=== PATIENT | male | born 1945 | race Caucasian/White ===

== ENCOUNTER 2016-11-29 07:42 | Day surgery (SDC) | payer MEDICARE, OTHER ==
[2016-11-29] MEDS ORDERED: CYCLOPENTOLATE 1% OPHTH DROPS 2 ML OPTH ONE (08:05)
[2016-11-29] MEDS ORDERED: TROPICAMIDE 1% OPHTH 2 ML DROPS OPTH ONE (08:05)
[2016-11-29] MEDS ORDERED: KETOROLAC 0.45% OPHTH DROPS OPTH ONE (08:05)
[2016-11-29] MEDS ORDERED: LACTATED RINGERS 1,000 ML IV ONE (09:08)
[2016-11-29] MEDS ORDERED: levoFLOXacin 0.5% OPHTH DROPS 5 ML OPTH ONE (09:17)
[2016-11-29] MEDS ORDERED: EPINEPHrine 1 MG/ML AMP IO ONE (09:17)
[2016-11-29] MEDS ORDERED: CHONDR SULF/HYALURONATE SYRINGE IO ONE (09:17)
[2016-11-29] MEDS ORDERED: MIDAZOLAM 2 MG/2 ML VIAL IVP ONE (09:17)
[2016-11-29] MEDS ORDERED: BSS/LIDOCAINE/EPINEPHRINE 1 ML SYRINGE IO ONE (09:17)
[2016-11-29] MEDS ORDERED: PROPARACAINE 0.5% OPHTH DROPS 15 ML OPTH ONE (09:17)
[2016-11-29] MEDS ORDERED: TETRACAINE 0.5% OPHTH DROPS 4 ML OPTH ONE (09:17)
== END 2016-11-29 07:43 | disposition home or self-care (01) ==
PROC: 08RK3JZ Replacement of Left Lens with Synthetic Substitute, Percutaneous Approach (ICD-10-PCS; principal; 2016-11-29 08:45)
DX: H26.9 Unspecified cataract (principal); G20 Parkinson's disease; Z86.73 Personal history of transient ischemic attack (TIA), and cerebral infarction without residual deficits
CPT/HCPCS: 66984; J7120; V2632

== ENCOUNTER 2016-12-13 07:05 | Day surgery (SDC) | payer MEDICARE, OTHER ==
[2016-12-13] MEDS ORDERED: CYCLOPENTOLATE 1% OPHTH DROPS 2 ML OPTH ONE (07:20)
[2016-12-13] MEDS ORDERED: TROPICAMIDE 1% OPHTH 2 ML DROPS OPTH ONE (07:20)
[2016-12-13] MEDS ORDERED: KETOROLAC 0.45% OPHTH DROPS OPTH ONE (07:20)
[2016-12-13] MEDS ORDERED: LACTATED RINGERS 500 ML IV ONE (07:23)
[2016-12-13] MEDS ORDERED: BRIMONIDINE 0.2% OPHTH DROPS 5 ML OPTH ONE (08:26)
[2016-12-13] MEDS ORDERED: CHONDR SULF/HYALURONATE SYRINGE IO ONE (08:26)
[2016-12-13] MEDS ORDERED: TETRACAINE 0.5% OPHTH DROPS 4 ML OPTH ONE (08:26)
[2016-12-13] MEDS ORDERED: EPINEPHrine 1 MG/ML AMP IO ONE (08:26)
[2016-12-13] MEDS ORDERED: levoFLOXacin 0.5% OPHTH DROPS 5 ML OPTH ONE (08:26)
[2016-12-13] MEDS ORDERED: PROPARACAINE 0.5% OPHTH DROPS 15 ML OPTH ONE (08:26)
[2016-12-13] MEDS ORDERED: BSS/LIDOCAINE/EPINEPHRINE 1 ML SYRINGE IO ONE (08:27)
== END 2016-12-13 07:06 | disposition home or self-care (01) ==
PROC: 08RJ3JZ Replacement of Right Lens with Synthetic Substitute, Percutaneous Approach (ICD-10-PCS; principal; 2016-12-13 08:00)
DX: H25.11 Age-related nuclear cataract, right eye (principal); Z86.73 Personal history of transient ischemic attack (TIA), and cerebral infarction without residual deficits; G20 Parkinson's disease
CPT/HCPCS: 66984; V2632

== ENCOUNTER 2017-05-22 10:00 | Outpatient (CLI) | payer MEDICARE, OTHER | END 2017-05-22 10:01 | disposition EMS.NT | LOC: EMS 10:00 | PROVIDERS: ATTEND Surgery | DX: M54.9 Dorsalgia, unspecified (principal) ==

== ENCOUNTER 2019-01-28 11:15 | Outpatient (CLI) | payer MEDICARE, OTHER ==
--- NOTE | 2019-01-29 08:35 | Ultrasound Report ---
Reason: KNEE PAIN, RIGHT Procedure Date: 01/28/2019 Accession Number: [id number] / [id number] Procedure: US - Ext Limited Non Vascular CPT Code: FULL RESULT: EXAM: RIGHT LOWER EXTREMITY ULTRASOUND - LIMITED EXAM DATE: 01/28/2019 11:21 AM. CLINICAL HISTORY: Right knee pain. Right knee popliteal mass. COMPARISON: None. TECHNIQUE: Real-time scanning was performed with static images obtained. FINDINGS: Sonographic assessment of the area of concern along the posterior aspect of the medial right knee demonstrates a lobular dumbbell-shaped cystic structure measuring 5.3 x 0.8 x 2 cm which runs deep to the margins of adjacent musculature and is filled with fluid. No increased vascularity noted. IMPRESSION: 1. Right popliteal 5.3 x 0.8 x 2 cm cystic fluid-filled dumbbell-shaped structure which most likely represents a popliteal cyst. RADIA
== END 2019-01-28 11:16 | disposition home or self-care (01) ==
LOC: DI 11:15
PROVIDERS: ATTEND Orthopaedic Surgery Sports Medicine
DX: M25.861 Other specified joint disorders, right knee (principal)
CPT/HCPCS: 76882

== ENCOUNTER 2019-05-26 13:44 | Outpatient (CLI) | payer MEDICARE, OTHER ==
[~2019-05-26 13:44] MED LIST: BUFFERED LIDOCAINE 10 ML SYRINGE ONE
[2019-05-26] MEDS ORDERED: TRIAMCINOLONE 40 MG/ML VIAL IM ONE (15:20)
[2019-05-26] MEDS ORDERED: BUFFERED LIDOCAINE 10 ML SYRINGE IU ONE (15:20)
--- NOTE | 2019-05-26 15:54 | Ultrasound Report ---
Reason: KNEE PAIN, RIGHT Procedure Date: 05/26/2019 Accession Number: [id number] / [id number] Procedure: US - US Drain/Inj Joint/Bursa W US CPT Code: 96281 FULL RESULT: EXAM: ULTRASOUND-GUIDED POPLITEAL FOSSA CYST ASPIRATION AND ULTRASOUND-GUIDED JOINT STEROID INJECTION. EXAM DATE: 05/26/2019 03:00 PM. CLINICAL HISTORY: Knee pain, right. COMPARISON: None. FINDINGS AND TECHNIQUE: Risks, benefits, and alternatives to the procedure were discussed with the patient. All questions answered. Written and verbal consent obtained. Patient was placed in the prone position and the skin overlying the right popliteal fossa was marked with sonographic guidance. The skin was sterilely prepped and draped, and 1% buffered lidocaine was used for local anesthesia. An 18-gauge needle was advanced into the popliteal fossa cyst and fluid aspirated. The fluid was clear and straw-colored. Given synovial prominence and patient's symptoms, the knee joint with persistent effusion was then injected with 40 mg of triamcinolone steroid. Patient tolerated procedure well. IMPRESSION: Ultrasound-guided popliteal fossa cyst aspiration. Ultrasound-guided right knee joint steroid injection. RAD[facility]
== END 2019-05-26 13:45 | disposition home or self-care (01) ==
LOC: DI 13:44
PROVIDERS: ATTEND Orthopaedic Surgery Sports Medicine
DX: M25.561 Pain in right knee (principal); M71.21 Synovial cyst of popliteal space [Baker], right knee
CPT/HCPCS: 20611

== ENCOUNTER 2021-04-26 09:16 | Outpatient (CLI) | payer MEDICARE, OTHER ==
[2021-04-26 14:53] LABS: BASOPHILS % (AUTO) 0.4 %; EOSINOPHILS # (AUTO) 0.2 10^3/uL (0.0-0.7); EOSINOPHILS % (AUTO) 2.1 %; HCT - HEMATOCRIT 44.7 % (42.0-52.0); HGB - HEMOGLOBIN 14.7 g/dL (14.0-18.0); LYMPHOCYTES # (AUTO) 1.4 10^3/uL (1.5-3.5); LYMPHOCYTES % (AUTO) 15.9 %; MEAN CORPUSCULAR HGB CONC 32.9 g/dL (32.0-36.0); MEAN CORPUSCULAR VOLUME 94.3 fL (80.0-94.0); MEAN PLATELET VOLUME 12.4 fL (7.4-11.4); MONOCYTES # (AUTO) 0.8 10^3/uL (0.0-1.0); MONOCYTES % (AUTO) 8.8 %; NEUTROPHILS # (AUTO) 6.5 10^3/uL (1.5-6.6); NEUTROPHILS % (AUTO) 72.6 %; PLT - PLATELET COUNT 190 10^3/uL (130-450); RED BLOOD COUNT 4.74 10^6/uL (4.70-6.10); WHITE BLOOD COUNT 8.9 x10^3/uL (4.8-10.8)
[2021-04-26 15:07] LABS: THYROID STIMULATING HORMONE 1.59 uIU/mL (0.34-5.60)
[2021-04-26 15:13] LABS: FERRITIN 140.3 ng/mL (23.9-336.2)
[2021-04-26 15:15] LABS: % IRON SATURATION 21 % (20-50); ALBUMIN 3.7 g/dL (3.2-5.5); ALBUMIN/GLOBULIN RATIO 1.1 (1.0-2.2); ALKALINE PHOSPHATASE 63 IU/L (42-121); ALT ALANINE AMINOTRANSFERASE < 10 IU/L (10-60); AST ASPARTATE AMINOTRANSFERASE 16 IU/L (10-42); BILIRUBIN,TOTAL 0.6 mg/dL (0.2-1.0); BUN - BLOOD UREA NITROGEN 18 mg/dL (6-20); CALCIUM 9.3 mg/dL (8.5-10.3); CARBON DIOXIDE - CO2 30 mmol/L (21-32); CHLORIDE 104 mmol/L (101-111); CHOL/HDL RATIO 3.5 (<5.0); CHOLESTEROL 182 mg/dL; GFR - MDRD 72 (>89); GLUCOSE 75 mg/dL (70-100); HDL CHOLESTEROL 52 mg/dL; IRON 68 ug/dL (45-182); LDL CHOLESTEROL,CALCULATED 110 mg/dL; LDL/HDL RATIO 2.1 (<3.6); POTASSIUM 4.1 mmol/L (3.5-5.0); SODIUM 143 mmol/L (135-145); TOTAL IRON BINDING CAPACITY 325 ug/dL (250-450); TRANSFERRIN 232 mg/dL (180-329); TRIGLYCERIDES 101 mg/dL; URIC ACID 5.5 mg/dL (2.6-7.2); VLDL CHOLESTEROL 20 mg/dL
[2021-04-26 20:42] LABS: ESTIMATED AVERAGE GLUCOSE 117 mg/dL (70-100); HEMOGLOBIN A1c% 5.7 % (4.27-6.07)
== END 2021-04-26 09:17 | disposition home or self-care (01) ==
LOC: LAB.S 09:16
PROVIDERS: ATTEND Naturopath
DX: G20 Parkinson's disease (principal); E63.9 Nutritional deficiency, unspecified; R63.8 Other symptoms and signs concerning food and fluid intake; Z71.3 Dietary counseling and surveillance
CPT/HCPCS: 36415; 80053; 80061; 81599; 82306; 82542; 82570; 82607; 82627; 82728; 83036; 83540; 83721; 84443; 84466; 84550; 85025; 86141

== ENCOUNTER 2021-06-27 11:30 | Outpatient (CLI) | payer MEDICARE, OTHER ==
[2021-06-27 15:15] LABS: BASOPHILS # (AUTO) 0.1 10^3/uL (0.0-0.1); BASOPHILS % (AUTO) 0.8 %; EOSINOPHILS # (AUTO) 0.1 10^3/uL (0.0-0.7); EOSINOPHILS % (AUTO) 1.7 %; HCT - HEMATOCRIT 43.6 % (42.0-52.0); LYMPHOCYTES # (AUTO) 1.2 10^3/uL (1.5-3.5); LYMPHOCYTES % (AUTO) 16.1 %; MEAN CORPUSCULAR HGB CONC 32.1 g/dL (32.0-36.0); MEAN CORPUSCULAR VOLUME 96.5 fL (80.0-94.0); MEAN PLATELET VOLUME 12.1 fL (7.4-11.4); MONOCYTES # (AUTO) 0.6 10^3/uL (0.0-1.0); MONOCYTES % (AUTO) 8.3 %; NEUTROPHILS # (AUTO) 5.2 10^3/uL (1.5-6.6); NEUTROPHILS % (AUTO) 72.8 %; PLT - PLATELET COUNT 193 10^3/uL (130-450); RED BLOOD COUNT 4.52 10^6/uL (4.70-6.10); RED CELL DISTRIBUTION WIDTH 13.2 % (12.0-15.0); WHITE BLOOD COUNT 7.1 x10^3/uL (4.8-10.8)
[2021-06-27 15:44] LABS: % IRON SATURATION 43 % (20-50); ALBUMIN 3.6 g/dL (3.2-5.5); ALBUMIN/GLOBULIN RATIO 1.1 (1.0-2.2); ALKALINE PHOSPHATASE 59 IU/L (42-121); ALT ALANINE AMINOTRANSFERASE < 10 IU/L (10-60); AST ASPARTATE AMINOTRANSFERASE 16 IU/L (10-42); BUN - BLOOD UREA NITROGEN 20 mg/dL (6-20); CALCIUM 8.8 mg/dL (8.5-10.3); CARBON DIOXIDE - CO2 30 mmol/L (21-32); CHLORIDE 100 mmol/L (101-111); CHOL/HDL RATIO 3.4 (<5.0); CHOLESTEROL 168 mg/dL; CRP HIGH SENSITIVITY 3.8 mg/L; GFR - MDRD 72 (>89); GLUCOSE 85 mg/dL (70-100); HDL CHOLESTEROL 50 mg/dL; IRON 132 ug/dL (45-182); LDL CHOLESTEROL,CALCULATED 105 mg/dL; LDL/HDL RATIO 2.1 (<3.6); POTASSIUM 4.6 mmol/L (3.5-5.0); SODIUM 139 mmol/L (135-145); THYROID STIMULATING HORMONE 1.58 uIU/mL (0.34-5.60); TOTAL IRON BINDING CAPACITY 309 ug/dL (250-450); TOTAL PROTEIN 6.8 g/dL (6.7-8.2); TRANSFERRIN 221 mg/dL (180-329); TRIGLYCERIDES 67 mg/dL; URIC ACID 5.1 mg/dL (2.6-7.2); VLDL CHOLESTEROL 13 mg/dL
[2021-06-27 15:51] LABS: FERRITIN 148.8 ng/mL (23.9-336.2)
[2021-06-27 20:15] LABS: ESTIMATED AVERAGE GLUCOSE 105 mg/dL (70-100); HEMOGLOBIN A1c% 5.3 % (4.27-6.07)
[2021-06-28 12:07] LABS: HOMOCYSTEINE 11.4 umol/L (<11.4)
== END 2021-06-27 11:31 | disposition home or self-care (01) ==
LOC: LAB.S 11:30
PROVIDERS: ATTEND Naturopath
DX: G20 Parkinson's disease (principal); R63.8 Other symptoms and signs concerning food and fluid intake; Z71.3 Dietary counseling and surveillance; E63.9 Nutritional deficiency, unspecified
CPT/HCPCS: 36415; 80053; 80061; 81599; 82306; 82542; 82570; 82607; 82627; 82728; 83036; 83090; 83540; 83721; 83921; 84443; 84466; 84550; 85025; 86141

== ENCOUNTER 2021-10-06 10:11 | Outpatient (CLI) | payer MEDICARE, OTHER ==
[2021-10-06 15:27] LABS: BASOPHILS # (AUTO) 0.1 10^3/uL (0.0-0.1); BASOPHILS % (AUTO) 0.6 %; EOSINOPHILS # (AUTO) 0.1 10^3/uL (0.0-0.7); EOSINOPHILS % (AUTO) 1.2 %; HCT - HEMATOCRIT 45.8 % (42.0-52.0); HGB - HEMOGLOBIN 15.4 g/dL (14.0-18.0); LYMPHOCYTES # (AUTO) 1.3 10^3/uL (1.5-3.5); LYMPHOCYTES % (AUTO) 15.3 %; MEAN CORPUSCULAR HEMOGLOBIN 31.6 pg (27.0-31.0); MEAN CORPUSCULAR HGB CONC 33.6 g/dL (32.0-36.0); MEAN CORPUSCULAR VOLUME 93.9 fL (80.0-94.0); MEAN PLATELET VOLUME 11.9 fL (7.4-11.4); MONOCYTES # (AUTO) 0.7 10^3/uL (0.0-1.0); MONOCYTES % (AUTO) 8.8 %; NEUTROPHILS # (AUTO) 6.1 10^3/uL (1.5-6.6); NEUTROPHILS % (AUTO) 73.7 %; PLT - PLATELET COUNT 195 10^3/uL (130-450); RED BLOOD COUNT 4.88 10^6/uL (4.70-6.10); RED CELL DISTRIBUTION WIDTH 12.5 % (12.0-15.0); WHITE BLOOD COUNT 8.2 x10^3/uL (4.8-10.8)
== END 2021-10-06 10:12 | disposition home or self-care (01) ==
LOC: LAB.S 10:11
PROVIDERS: ATTEND Naturopath
DX: G20 Parkinson's disease (principal); R79.89 Other specified abnormal findings of blood chemistry
CPT/HCPCS: 36415; 83090; 85025

== ENCOUNTER 2022-07-05 10:28 | Outpatient (CLI) | payer SELFPAY | END 2022-07-05 10:29 | disposition home or self-care (01) | LOC: LAB.S 10:28 | PROVIDERS: ATTEND Orthopaedic Surgery | DX: M25.561 Pain in right knee (principal); Z96.651 Presence of right artificial knee joint | CPT/HCPCS: 36415; 85651; 86140 ==

== ENCOUNTER 2023-01-02 08:58 | Outpatient (CLI) | payer MEDICARE, OTHER ==
[2023-01-02 14:24] LABS: BASOPHILS # (AUTO) 0.1 10^3/uL (0.0-0.1); BASOPHILS % (AUTO) 0.8 %; EOSINOPHILS # (AUTO) 0.2 10^3/uL (0.0-0.7); EOSINOPHILS % (AUTO) 2.9 %; HCT - HEMATOCRIT 46.2 % (42.0-52.0); HGB - HEMOGLOBIN 14.7 g/dL (14.0-18.0); LYMPHOCYTES # (AUTO) 1.7 10^3/uL (1.5-3.5); LYMPHOCYTES % (AUTO) 20.3 %; MEAN CORPUSCULAR HEMOGLOBIN 30.7 pg (27.0-31.0); MEAN CORPUSCULAR HGB CONC 31.8 g/dL (32.0-36.0); MEAN CORPUSCULAR VOLUME 96.5 fL (80.0-94.0); MEAN PLATELET VOLUME 11.9 fL (7.4-11.4); MONOCYTES # (AUTO) 0.7 10^3/uL (0.0-1.0); MONOCYTES % (AUTO) 8.5 %; NEUTROPHILS # (AUTO) 5.6 10^3/uL (1.5-6.6); NEUTROPHILS % (AUTO) 67.1 %; PLT - PLATELET COUNT 183 10^3/uL (130-450); RED BLOOD COUNT 4.79 10^6/uL (4.70-6.10); RED CELL DISTRIBUTION WIDTH 12.6 % (12.0-15.0); WHITE BLOOD COUNT 8.3 x10^3/uL (4.8-10.8)
[2023-01-02 15:26] LABS: THYROID STIMULATING HORMONE 2.13 uIU/mL (0.34-5.60)
[2023-01-02 15:30] LABS: % IRON SATURATION 34 % (20-50); ALBUMIN 3.6 g/dL (3.2-5.5); ALBUMIN/GLOBULIN RATIO 1.2 (1.0-2.2); ALKALINE PHOSPHATASE 64 IU/L (42-121); ALT ALANINE AMINOTRANSFERASE < 10 IU/L (10-60); AST ASPARTATE AMINOTRANSFERASE 14 IU/L (10-42); BILIRUBIN,TOTAL 0.7 mg/dL (0.2-1.0); BUN - BLOOD UREA NITROGEN 17 mg/dL (6-20); CARBON DIOXIDE - CO2 30 mmol/L (21-32); CHLORIDE 108 mmol/L (101-111); CHOL/HDL RATIO 3.7 (<5.0); CHOLESTEROL 201 mg/dL; CREATININE 0.9 mg/dL (0.6-1.2); CRP HIGH SENSITIVITY 2.4 mg/L; GFR - MDRD 81 (>89); GLUCOSE 94 mg/dL (70-100); HDL CHOLESTEROL 55 mg/dL; IRON 116 ug/dL (45-182); LDL CHOLESTEROL,CALCULATED 135 mg/dL; LDL/HDL RATIO 2.5 (<3.6); POTASSIUM 4.4 mmol/L (3.5-5.0); SODIUM 143 mmol/L (135-145); TOTAL IRON BINDING CAPACITY 344 ug/dL (250-450); TOTAL PROTEIN 6.7 g/dL (6.7-8.2); TRANSFERRIN 246 mg/dL (180-329); TRIGLYCERIDES 54 mg/dL; URIC ACID 4.6 mg/dL (2.6-7.2); VLDL CHOLESTEROL 11 mg/dL
[2023-01-02 15:33] LABS: FERRITIN 105.6 ng/mL (23.9-336.2)
[2023-01-02 21:04] LABS: ESTIMATED AVERAGE GLUCOSE 108 mg/dL (70-100); HEMOGLOBIN A1c% 5.4 % (4.27-6.07)
[2023-01-03 06:10] LABS: VITAMIN D 25-HYDROXY 39.8 ng/mL (30.0-100.0)
== END 2023-01-02 08:59 | disposition home or self-care (01) ==
LOC: LAB.S 08:58
PROVIDERS: ATTEND Naturopath
DX: G20 Parkinson's disease (principal); E63.9 Nutritional deficiency, unspecified; Z71.3 Dietary counseling and surveillance; R63.8 Other symptoms and signs concerning food and fluid intake; E78.5 Hyperlipidemia, unspecified
CPT/HCPCS: 36415; 80053; 80061; 81599; 82306; 82542; 82570; 82607; 82627; 82728; 83036; 83090; 83540; 83721; 83921; 84443; 84466; 84550; 85025; 86141

== ENCOUNTER 2023-02-16 07:00 | Outpatient (CLI) | payer MEDICARE, OTHER ==
--- NOTE | 2023-02-16 09:59 | XRAY Report ---
PROCEDURE: Ribs w/PA Chest RT INDICATIONS: CONTUSION OF RIGHT BACK WALL OF THORAX TECHNIQUE: 2 views of the right ribs were acquired, along with a single view chest. COMPARISON: None. FINDINGS: Surgical changes and devices: None. Bones and chest wall: Mildly displaced fractures of the posterior lateral 9-11th ribs. Lungs and pleura: No pleural effusions or pneumothorax. Lungs appear clear. Calcified granuloma i n the right upper lung zone. Mediastinum: Mediastinal contours appear normal. Heart size is normal. IMPRESSION: Mildly displaced fractures of the posterior/lateral 9-11th ribs. No pneumothorax. Reviewed by: German Hernández on 02/16/2023 9:57 AM PDT Approved by: German Hernández on 02/16/2023 9:57 AM PDT Station ID: [id number]
== END 2023-02-16 23:59 | disposition home or self-care (01) ==
LOC: DI.S 07:00
PROVIDERS: ATTEND Registered Nurse
DX: S22.49XA Multiple fractures of ribs, unspecified side, initial encounter for closed fracture (principal)

== ENCOUNTER 2023-02-28 10:25 | Outpatient (CLI) | payer MEDICARE, OTHER ==
--- NOTE | 2023-03-01 10:43 | XRAY Report ---
PROCEDURE: Knee 3 View RT INDICATIONS: OTHER INTERNAL DERANGEMENTS OF RIGHT KNEE TECHNIQUE: 3 views of the right knee(s) were acquired. COMPARISON: X-ray right knee, 01/07/2019. FINDINGS: Bones: No fractures or dislocations. No suspicious bony lesions. Right knee total arthroplasty. S urgical hardware are intact. Alignment is normal. Soft tissues: No knee joint effusion. No suspicious soft tissue calcifications or masses. IMPRESSION: Expected postsurgical change. Reviewed by: Elvia Simmons MD on 03/01/2023 10:41 AM PDT Approved by: Elvia Simmons MD on 03/01/2023 10:41 AM PDT Station ID: [id number]
== END 2023-02-28 10:26 | disposition home or self-care (01) ==
LOC: DI 10:25
PROVIDERS: ATTEND Internal Medicine
DX: M23.8X1 Other internal derangements of right knee (principal)

== ENCOUNTER → 2023-11-30 | Outpatient (CLI) | payer MEDICARE, OTHER | LOC: PC 13:30 | PROVIDERS: ATTEND Nurse Practitioner Gerontology | DX: Z51.5 Encounter for palliative care (principal); R29.6 Repeated falls; K02.9 Dental caries, unspecified; G20.A1 Parkinson's disease without dyskinesia, without mention of fluctuations; Z65.8 Other specified problems related to psychosocial circumstances; Z87.891 Personal history of nicotine dependence | CPT/HCPCS: 99350 ==

== ENCOUNTER 2024-01-15 12:05 | Outpatient (CLI) | payer MEDICARE, OTHER | END 2024-01-15 23:59 | disposition home or self-care (01) | LOC: PC 12:05 | PROVIDERS: ATTEND Nurse Practitioner Gerontology | DX: Z51.5 Encounter for palliative care (principal); G20.A1 Parkinson's disease without dyskinesia, without mention of fluctuations; K08.109 Complete loss of teeth, unspecified cause, unspecified class; R29.6 Repeated falls; Z97.2 Presence of dental prosthetic device (complete) (partial); Z65.8 Other specified problems related to psychosocial circumstances; Z79.899 Other long term (current) drug therapy; Z71.89 Other specified counseling | CPT/HCPCS: 99350; G0318; 99417 ==

== ENCOUNTER 2024-02-21 14:20 | Outpatient (CLI) | payer MEDICARE, OTHER | END 2024-02-21 23:59 | disposition home or self-care (01) | LOC: PC 14:20 | PROVIDERS: ATTEND Nurse Practitioner Gerontology | DX: Z51.5 Encounter for palliative care (principal); R49.1 Aphonia; G20.A1 Parkinson's disease without dyskinesia, without mention of fluctuations; F41.9 Anxiety disorder, unspecified; T88.9XXA Complication of surgical and medical care, unspecified, initial encounter; Z91.81 History of falling; Z97.2 Presence of dental prosthetic device (complete) (partial) | CPT/HCPCS: 99350 ==

== ENCOUNTER 2024-03-13 17:25 | Outpatient (CLI) | payer MEDICARE, OTHER | END 2024-03-13 23:59 | disposition critical access hospital (66) | LOC: EMS 17:25 | DX: S01.81XA Laceration without foreign body of other part of head, initial encounter (principal); W01.0XXA Fall on same level from slipping, tripping and stumbling without subsequent striking against object, initial encounter; Y93.01 Activity, walking, marching and hiking; Y92.531 Health care provider office as the place of occurrence of the external cause | CPT/HCPCS: A0425; A0429 ==

== ENCOUNTER 2024-03-13 17:55 | Emergency (ER) | payer MEDICARE, OTHER ==
[2024-03-13 18:21] VITALS: BP 147/71; O2SAT 100
--- NOTE | 2024-03-13 19:02 | ED Physician Documentation ---
PD HPI HEAD INJURY - Stated complaint Stated Complaint: GLF - Chief complaint Chief Complaint: Trauma Hd/Nk - Additional information Additional information: 78-year-old male with Parkinson's and deep brain stimulator presents emergency department after experiencing mechanical ground-level fall tripping over a piece of wood hitting left eyebrow and left scalp. He originally went to walk-in clinic and they sent him here to the emergency department for further more advanced imaging. There is no loss of consciousness patient denies any use of blood thinners. There is a left scalp hematoma with a left scalp laceration. No nausea or vomiting no focal neurological deficits. He also endorses some pain to his left shoulder with superficial abrasions to the top of patient's left shoulder PD PAST MEDICAL HISTORY - Past Medical History Cardiovascular: None Respiratory: None Neuro: Parkinson's Endocrine/Autoimmune: None GI: None : Retention HEENT: Chronic vision loss Psych: None Musculoskeletal: Chronic back pain Derm: None - Past Surgical History Past Surgical History: Yes General: Appendectomy, Colonoscopy Neuro: Other - Present Medications Home Medications: Ambulatory Orders Medication Instructions Recorded Confirmed Carbidopa/Levodopa 25/100 [Sinemet 1 each PO BID 10/13/13 12/13/16 25 mg/100 mg] Tamsulosin [Flomax] 0.4 mg PO DAILY 10/13/13 12/13/16 rOPINIRole [Requip] 0.25 mg PO TID 06/02/15 12/13/16 Cholecalciferol (Vitamin D3) 1,000 unit PO QID 11/29/16 12/13/16 [Vitamin D3] - Allergies Allergies/Adverse Reactions: Allergies Allergy/AdvReac Type Severity Reaction Status Date / Time phenytoin sodium * Allergy Intermediate Rash Verified 03/13/24 18:09 [From Dilantin] phenytoin sodium extended * Allergy Intermediate Rash Verified 03/13/24 18:09 [From Dilantin] - Social History Does the pt smoke?: No Smoking Status: Never smoker Does the pt drink ETOH?: Yes - Immunizations Immunizations are current?: Yes Immunizations: TDAP current <10years - POLST Patient has POLST: No PD ED PE NORMAL - Vitals Vital signs reviewed: Yes - General General: Alert and oriented X 3, No acute distress, Well developed/nourished - HEENT HEENT: PERRL, EOMI, Other (Left eyebrow laceration) - Neck Neck: No bony TTP - Cardiac Cardiac: RRR, No murmur, No gallop - Respiratory Respiratory: No respiratory distress - Abdomen Abdomen: Normal bowel sounds, Soft, Non tender - Back Back: No CVA TTP, No spinal TTP - Derm Derm: Other (Left eyebrow laceration) - Extremities Extremities: Other (Left shoulder: Superficial abrasions to the top of the left shoulder no bruising or swelling full range of motion of, some tenderness with abduction.) Results - Vitals Vitals: Vital Signs - 24 hr 03/13/24 18:05 Temperature 36.6 C Heart Rate 60 Respiratory 16 Rate Blood Pressure 147/71 H O2 Saturation 100 Oxygen O2 Source Room air - Rads (name of study) Cervical spine without Relevant Findings:: Final report received, EMP independent interpretation of test, Other (Mild to moderate spondylosis no subluxation or fractures) Head CT without Relevant Findings:: Final report received, EMP independent interpretation of test, Other (No acute intracranial abnormality, postsurgical changes are present, left deep brain stimulator present) Left shoulder x-ray Relevant Findings:: Final report received, EMP independent interpretation of test, Other (Mild degenerative changes no acute displaced fracture or dislocation) Procedures - Laceration (location) Left lateral superior eyebrow laceration Length in cm: 2 Wound type: Stellate, Into subcut fat, Clean Neurovascular status: Sensory intact, Motor intact Anesthesia: Lidocaine 1% Wound preparation: Irrigated copiously NS, Wound explored, To the base Skin layer closure: Dermabond, Steri strips (3) Other: Patient tolerated well, No complications, Neurovascular intact, Tetanus UTD PD Medical Decision Making - ED course ED course: 78-year-old male presents emergency department after experiencing a ground-level fall after tripping on a piece of wood. Patient had no loss of consciousness no nausea or vomiting after the fall. We went ahead and did a head CT as well as cervical CT without con for further evaluation no acute abnormalities or findings deep brain stimulator appears to be intact. They were told to keep a close eye on the patient for the next 72 hours if he develops any other neurological changes to bring him back to the emergency department immediately for further evaluation. There is a superficial laceration over the left lateral superior eyebrow it was cleansed with normal saline and well-approximated with Dermabond and Steri-Strips. They were taught how to manage the wound at home. Left shoulder x-rays were also completed for further evaluation and again no fractures or dislocations are visualized we discussed the possibility of putting a sling on the patient's left shoulder but I do believe this would make him more of a high fall risk and so they were told to follow-up with primary care provider for possible physical therapy apply ice 20 minutes at a time 1 hour off we offered Tylenol he kindly declined and said that he preferred ibuprofen to be given some ibuprofen here in the emergency department. Strict ER return precautions given all questions answered patient is safe for discharge at this time. Departure - Departure Disposition: 01 Home, Self Care Clinical Impression: Scalp hematoma Instructions: ED Hematoma Comments: Thank you for trusting us with your care. We have completed head, and neck CT neither are showing any sort of acute abnormalities or findings. We have also completed x-rays of your left shoulder and again we are not seeing any acute abnormalities or findings no fractures. As we discussed is very rare but if patient is starting to develop any neurological deficits that are different from his baseline such as confusion, increase sleepiness, nausea vomiting, weakness on one side of the body, or any sort of behavioral changes such as confusion please come back to the emergency department for reevaluation. You can alternate between Tylenol and ibuprofen for any pain and discomfort you can remove the Steri-Strips in about a week and you can wash it as you normally would with simple soap and water. Again please have a low threshold to come back to the emergency department for further evaluation as needed. Keep an eye out for signs symptoms of infection which include redness, swelling, drainage that is yellow or green, fevers or chills. Forms: PCP List Discharge Date/Time: 03/13/24 20:45
--- NOTE | 2024-03-13 19:37 | XRAY Report ---
PROCEDURE: Shoulder 2+V LT INDICATIONS: Left shoulder pain post ground-level fall TECHNIQUE: 3 views of the shoulder were acquired. COMPARISON: None. FINDINGS: Bones: Mild glenohumeral and vallecular degenerative changes. No acute displaced fracture or disloca tion. Soft tissues: Suspected calcific tendinopathy. Partially seen left chest wall pulse generator. IMPRESSION: Mild degenerative changes. No acute displaced fracture or dislocation. If there is high concern for occult injury, consider repeat radiography or cross-sectional imaging. Reviewed by: Ari Taylor MD on 03/13/2024 7:36 PM PDT Approved by: Ari Taylor MD on 03/13/2024 7:36 PM PDT Station ID: [id number]
[2024-03-13] MEDS: ACETAMINOPHEN 325 MG TABLET PO STA (19:49)
[2024-03-13] MEDS: LIDOCAINE 1%-EPI 1:100000 10 ML MDV TD STA (19:50)
--- NOTE | 2024-03-13 19:51 | CT Report ---
PROCEDURE: Head WO INDICATIONS: GLF, left eyebrow hematoma TECHNIQUE: Noncontrast 4.5 mm thick angled axial sections acquired from the foramen magnum to the vertex. For r adiation dose reduction, the following was used: automated exposure control, adjustment of mA and/or kV according to patient size. COMPARISON: None. FINDINGS: Image quality: Diagnostic CSF spaces: Basal cisterns are patent. The right lateral ventricle is larger than the left. Volume: Vascular calcifications. Periventricular white matter disease is commonly seen with chronic m icroangiopathy. Volume loss is present. These findings are moderate. Brain: Postsurgical changes. Left-sided deep brain stimulator. No acute hemorrhage. No gross loss of moe-white differentiation. Craniofacial structures: Postsurgical calvarial and scalp changes. Left supraorbital contusion. IMPRESSION: No acute intracranial abnormality. Postsurgical changes are present. Left deep brain stimulator. Reviewed by: Ari Taylor MD on 03/13/2024 7:50 PM PDT Approved by: Ari Taylor MD on 03/13/2024 7:50 PM PDT Station ID: [id number]
--- NOTE | 2024-03-13 19:54 | CT Report ---
PROCEDURE: Cervical Spine WO INDICATIONS: GLF TECHNIQUE: Noncontrast 3 mm thick sections acquired from the skull base to the T4 level. Sagittal and coronal r eformats were then constructed. For radiation dose reduction, the following was used: automated exp osure control, adjustment of mA and/or kV according to patient size. COMPARISON: None. FINDINGS: Image quality: Diagnostic Bones: Mild to moderate degenerative changes. There is no traumatic subluxation. Trace anterolisthesi s of C7 on T1 likely degenerative. No acute appearing vertebral body height loss. Soft tissues: No pathologic prevertebral soft tissue swelling. No apical pneumothorax. Partially calc ified 4 to 5 mm right lung apex nodule.. Possible small spiculations. Right lower neck posterior subc utaneous possible sebaceous cyst. IMPRESSION: Mild to moderate spondylosis. No acute radiographic abnormality. If there is high concern for further derangement, consider MRI evaluation. Partially calcified small right lung apex nodule with possible adjacent spiculations. Consider noneme rgent follow-up chest CT. Reviewed by: Ari Taylor MD on 03/13/2024 7:53 PM PDT Approved by: Ari Taylor MD on 03/13/2024 7:53 PM PDT Station ID: [id number]
[2024-03-13] MEDS: IBUPROFEN 600 MG TABLET PO STA (20:07)
== END 2024-03-13 20:45 | disposition home or self-care (01) ==
LOC: EDUNIT# → ED 17:55
DX: S01.112A Laceration without foreign body of left eyelid and periocular area, initial encounter (principal); S40.212A Abrasion of left shoulder, initial encounter; G20.A1 Parkinson's disease without dyskinesia, without mention of fluctuations; Z96.82 Presence of neurostimulator; W01.0XXA Fall on same level from slipping, tripping and stumbling without subsequent striking against object, initial encounter
CPT/HCPCS: 12011; 70450; 72125; 73030; 99283; 99284; A9270

== ENCOUNTER 2024-03-20 08:00 | Outpatient (CLI) | payer MEDICARE, OTHER | END 2024-03-20 23:59 | disposition home or self-care (01) | LOC: PC 08:00 | PROVIDERS: ATTEND Nurse Practitioner Adult Health | DX: Z51.5 Encounter for palliative care (principal); G20.A1 Parkinson's disease without dyskinesia, without mention of fluctuations; F41.9 Anxiety disorder, unspecified; R29.6 Repeated falls; Z65.8 Other specified problems related to psychosocial circumstances; Z71.89 Other specified counseling; Z79.899 Other long term (current) drug therapy; Z97.2 Presence of dental prosthetic device (complete) (partial) | CPT/HCPCS: 99350 ==

== ENCOUNTER 2024-06-20 09:47 | Outpatient (CLI) | payer MEDICARE, OTHER ==
[2024-06-20 10:02] LABS: BASOPHILS # (AUTO) 0.1 10^3/uL (0.0-0.1); BASOPHILS % (AUTO) 0.7 %; EOSINOPHILS # (AUTO) 0.1 10^3/uL (0.0-0.7); EOSINOPHILS % (AUTO) 1.3 %; HCT - HEMATOCRIT 46.1 % (42.0-52.0); HGB - HEMOGLOBIN 15.1 g/dL (14.0-18.0); LYMPHOCYTES # (AUTO) 1.4 10^3/uL (1.5-3.5); LYMPHOCYTES % (AUTO) 16.8 %; MEAN CORPUSCULAR HEMOGLOBIN 30.4 pg (27.0-31.0); MEAN CORPUSCULAR HGB CONC 32.8 g/dL (32.0-36.0); MEAN CORPUSCULAR VOLUME 92.8 fL (80.0-94.0); MEAN PLATELET VOLUME 11.1 fL (7.4-11.4); MONOCYTES # (AUTO) 0.7 10^3/uL (0.0-1.0); MONOCYTES % (AUTO) 8.8 %; NEUTROPHILS # (AUTO) 6.1 10^3/uL (1.5-6.6); PLT - PLATELET COUNT 195 10^3/uL (130-450); RED BLOOD COUNT 4.97 10^6/uL (4.70-6.10); RED CELL DISTRIBUTION WIDTH 12.3 % (12.0-15.0); WHITE BLOOD COUNT 8.4 x10^3/uL (4.8-10.8)
[2024-06-20 10:23] LABS: CHOL/HDL RATIO 3.6 (<5.0); CHOLESTEROL 177 mg/dL; HDL CHOLESTEROL 49 mg/dL; LDL CHOLESTEROL,CALCULATED 115 mg/dL; LDL/HDL RATIO 2.3 (<3.6); TRIGLYCERIDES 65 mg/dL; VLDL CHOLESTEROL 13 mg/dL
[2024-06-20 10:28] LABS: ALBUMIN 3.9 g/dL (3.2-5.5); ALBUMIN/GLOBULIN RATIO 1.5 (1.0-2.2); ALKALINE PHOSPHATASE 58 IU/L (42-121); ALT ALANINE AMINOTRANSFERASE < 3 IU/L (10-60); AST ASPARTATE AMINOTRANSFERASE 11 IU/L (10-42); BILIRUBIN,TOTAL 0.8 mg/dL (0.2-1.0); BUN - BLOOD UREA NITROGEN 14 mg/dL (6-20); CALCIUM 9.2 mg/dL (8.5-10.3); CARBON DIOXIDE - CO2 32 mmol/L (21-32); CHLORIDE 105 mmol/L (101-111); CREATININE 0.9 mg/dL (0.6-1.3); GFR - MDRD 81 (>89); GLUCOSE 90 mg/dL (74-104); POTASSIUM 4.5 mmol/L (3.5-4.5); SODIUM 140 mmol/L (135-145); TOTAL PROTEIN 6.5 g/dL (6.4-8.9)
[2024-06-20 10:33] LABS: THYROID STIMULATING HORMONE 2.02 uIU/mL (0.34-5.60)
[2024-06-20 10:58] LABS: ESTIMATED AVERAGE GLUCOSE 105 mg/dL (70-100); HEMOGLOBIN A1c% 5.3 % (4.27-6.07)
== END 2024-06-20 09:48 | disposition home or self-care (01) ==
LOC: LAB 09:47
PROVIDERS: ATTEND Nurse Practitioner Adult Health
DX: I10 Essential (primary) hypertension (principal); E78.5 Hyperlipidemia, unspecified; Z79.899 Other long term (current) drug therapy; G20.A1 Parkinson's disease without dyskinesia, without mention of fluctuations
CPT/HCPCS: 36415; 80053; 80061; 83036; 83721; 84443; 85025